=== PATIENT | female | born 1995 | race Caucasian/White ===

== ENCOUNTER 2018-09-29 12:19 | Outpatient (RCR) | payer BC | END 2018-10-02 | disposition home or self-care (01) | LOC: WCC 12:19 | DX: T86.828 Other complications of skin graft (allograft) (autograft) (principal) | CPT/HCPCS: G0277; G0463 ==

== ENCOUNTER 2018-10-03 12:14 | Outpatient (RCR) | payer BC | END 2018-10-30 | disposition home or self-care (01) | LOC: WCC 12:14 | DX: T86.828 Other complications of skin graft (allograft) (autograft) (principal) | CPT/HCPCS: G0277 ×5 ==